=== PATIENT | male | born 1985 | race Caucasian/White ===

== ENCOUNTER 2018-05-05 22:41 | Emergency (ER) | payer BC, OTHER ==
[~2018-05-05 22:41] MED LIST: NO MEDS; PER PO
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
[2018-05-05 23:30] VITALS: BP 132/86
== END 2018-05-05 23:44 | disposition home or self-care (01) ==
LOC: ER 23:06
DX: S01.511A Laceration without foreign body of lip, initial encounter (principal)
CPT/HCPCS: 99282